=== PATIENT | female | born 1995 | race Caucasian/White ===

== ENCOUNTER → 2018-05-19 | Emergency (ER) | payer OTHER ==
[~2018-05-19] VITALS: Ht 162.6 cm; Wt 61.2 kg
[~2018-05-19] MED LIST: ANTACID SUSP 30 ML UDC (MYLANTA) PO ONE; ASPIRIN 81 MG CHEW (CHILDREN'S ASA) PO ONE; LIDOCAINE 2% VISCOUS 15 ML UDC PO ONE
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
--- OUTSIDE RECORDS SUMMARY | 2018-05-19 21:07 | XMS REPORT ---
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 Name Role Phone FRANK DAMON Unavailable PROBLEMS Unknown Problems ALLERGIES No Known Allergies ENCOUNTERS Encounter Location Date Diagnosis [facility] [id number] [place] [phone] Oct, Right foot pain M79.671 and Closed nondisplaced fracture of fifth metatarsal bone of right foot, initial encounter S92.354A [facility] [address] [place], [place] [id number] [place] [phone] Mar, Sore throat J02.9 and Middle ear effusion, right H65.91 [facility] [id number] [place] [phone] May, Fever and chills R50.9 [facility] [id number] [place] [phone] May, Sore throat J02.9 and Acute streptococcal pharyngitis J02.0 IMMUNIZATIONS No Known Immunizations SOCIAL HISTORY Never Assessed REASON FOR VISIT Right foot injury. happened last night. Missed some steps PLAN OF CARE Activity Details Follow Up prn Reason: VITAL SIGNS Height 63 in 2016-11-27 Temperature 98.5 degrees Fahrenheit 2016-11-27 Heart Rate 78 bpm 2016-11-27 Respiratory Rate 18 2016-11-27 Blood pressure systolic 102 mmHg 2016-11-27 Blood pressure diastolic 60 mmHg 2016-11-27 MEDICATIONS Medication Instructions Dosage Frequency Start Date End Date Duration Status Nexplanon 68 MG Active RESULTS No Results PROCEDURES Procedure Date Ordered Result Body Site X-RAY EXAM OF FOOT Nov 27, 2016 INSTRUCTIONS MEDICATIONS ADMINISTERED No Known Medications
--- OUTSIDE RECORDS SUMMARY | 2018-05-19 21:07 | XMS REPORT | Clinical Summary ---
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 Name Role Phone Lior Thurman MD PCP Allergies No Known Allergies Current Medications No known medications Active Problems Not on file Social History Tobacco Use Types Packs/Day Years Used Date Never Smoker Alcohol Use Drinks/Week oz/Week Comments Yes Sex Assigned at Date Recorded Not on file Last Filed Vital Signs Vital Sign Reading Time Taken Blood Pressure 110/64 04/22/2015 4:05 PM [employer] Pulse 72 04/22/2015 4:05 PM [employer] Temperature 36.7 C (98.1 F) 04/22/2015 4:05 PM [employer] Respiratory Rate 16 04/22/2015 4:05 PM [employer] Oxygen Saturation 100% 04/22/2015 4:05 PM [employer] Inhaled Oxygen - - Concentration Weight 52.2 kg (115 lb) 04/22/2015 4:05 PM [employer] Height 157.5 cm (5' 2") 04/22/2015 4:05 PM [employer] Body Mass Index 21.03 04/22/2015 4:05 PM [employer] Plan of Treatment Not on file Results Not on filefrom Last 3 Months
[2018-05-19 21:26] LABS: BASOPHILS % (AUTO) 0 % (0-10); EOSINOPHILS # (AUTO) 0.1 10^3/uL (0.0-0.3); EOSINOPHILS % (AUTO) 1 % (0-10); HEMATOCRIT 39 % (35-52); HEMOGLOBIN 13.7 G/DL (11.5-16.0); LYMPHOCYTES # (AUTO) 2.6 X 10^3 (1.0-4.0); LYMPHOCYTES % (AUTO) 30 % (12-44); MEAN CORPUSCULAR HEMOGLOBIN 32 PG (25-34); MEAN CORPUSCULAR HGB CONC 35 G/DL (32-36); MEAN CORPUSCULAR VOLUME 93 FL (80-99); MEAN PLATELET VOLUME 10.9 FL (7.4-10.4); MONOCYTES % (AUTO) 11 % (0-12); NEUTROPHILS % (AUTO) 57 % (42-75); PLATELET COUNT 260 10^3/uL (130-400); RED CELL DISTRIBUTION WIDTH 13.3 % (10.0-14.5); WHITE BLOOD COUNT 8.7 10^3/uL (4.3-11.0)
[2018-05-19 21:35] LABS: INR 1.1 (0.8-1.4); PROTHROMBIN TIME PATIENT 14.1 SEC (12.2-14.7)
[2018-05-19 21:46] LABS: ALANINE AMINOTRANSFERASE 12 U/L (0-55); ALBUMIN 4.6 GM/DL (3.2-4.5); ALKALINE PHOSPHATASE 73 U/L (40-136); AMYLASE 57 U/L (25-125); BILIRUBIN,TOTAL 0.2 MG/DL (0.1-1.0); BUN/CREATININE RATIO 14; CALCIUM 9.5 MG/DL (8.5-10.1); CARBON DIOXIDE 22 MMOL/L (21-32); CHLORIDE 107 MMOL/L (98-107); CREATINE KINASE 82 U/L (29-168); CREATININE SERUM 0.74 MG/DL (0.60-1.30); GFR ESTIMATED > 60; GLUCOSE 90 MG/DL (70-105); LIPASE 24 U/L (8-78); MAGNESIUM 2.1 MG/DL (1.8-2.4); POTASSIUM 3.4 MMOL/L (3.6-5.0); SODIUM 140 MMOL/L (135-145); TOTAL PROTEIN 7.3 GM/DL (6.4-8.2)
--- NOTE | 2018-05-19 21:52 | Diagnostic Imaging Report ---
INDICATION: Chest pain and left arm pain. EXAMINATION: PA and lateral views of the chest were obtained. FINDINGS: The heart size, mediastinal configuration, and pulmonary vascularity are within normal limits. There is no pleural effusion, pneumothorax, or pneumonia. The osseous structures are unremarkable. IMPRESSION: No acute cardiopulmonary abnormality. Dictated by: Dictated on workstation # [id number]
[2018-05-19 21:53] LABS: CREATINE KINASE MB 0.5 NG/ML (<6.6); MYOGLOBIN SERUM 21.6 NG/ML (10.0-92.0)
[2018-05-19 22:01] LABS: AMPHETAMINE SCREEN, URINE NEGATIVE (NEGATIVE); BARBITURATE SCREEN URINE NEGATIVE (NEGATIVE); BENZODIAZEPINES SCREEN URINE NEGATIVE (NEGATIVE); CANNABINOID SCREEN, URINE NEGATIVE (NEGATIVE); COCAINE SCREEN URINE NEGATIVE (NEGATIVE); METHADONE STAT NEGATIVE (NEGATIVE); METHAMPHETAMINE SCREEN URINE S NEGATIVE (NEGATIVE); OPIATE SCREEN URINE NEGATIVE (NEGATIVE); OXYCODONE STAT NEGATIVE (NEGATIVE); PROPOXYPHENE STAT NEGATIVE (NEGATIVE); TRICYCLIC ANTIDEPRESSANTS SCRE NEGATIVE (NEGATIVE)
--- NOTE | 2018-05-19 22:10 | ED Chest Pain ---
General Chief Complaint: Chest Pain Stated Complaint: CP Nursing Triage Note: pt states chest pain for 20 min. left chest radiating left arm/left back. Nursing Sepsis Screen: No Definite Risk History of Present Illness Date Seen by Provider: May 19, 2018 Time Seen by Provider: 21:30 Initial Comments 22-year-old female presents for left chest and arm pain. 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 She ate at approximately 1500 and was watching TV this evening when she began to have acute pain (approx 2100) in her left chest that radiated to her left arm. She became diaphoretic and nauseated. She came directly to the emergency department. She has no family history of CAD or CO, Her dad has HTN. Her sister had a congenital heart defect and required surgery shortly after for a "hole in her heart." She denies any injuries to her left chest wall today, she does no aggressive physical activity, she denies shortness of breath or palpitations, or recent cough/respiratory infection. Her pain is slightly improved since admission but still present in the left chest, under her breast and radiates into the left shoulder. She denies any back pain, jaw pain or injuries to her shoulder. She has an implanted control ( Implanon), she denies using tobacco products. She denies a history of anxiety, stress or panic attacks. She is planning to sign a teaching contract tomorrow, that she is excited about this and does not feel it isn't stressful event. Timing/Duration: 1/2 hour Severity/Quality: mild Location: epigastric Radiation: shoulders (left) Activities at Onset: none Prior CP/Workup: no prior chest pain ASA po WATER/WASTEWATER ENGINEER: No NTG SL WATER/WASTEWATER ENGINEER: No Associated Symptoms: diaphoresis, nausea/vomiting Allergies and Home Medications Allergies Coded Allergies: cephalexin (Unverified Allergy, Unknown, rash, 11/18/15) Home Medications No Active Prescriptions or Reported Meds Patient Home Medication List Home Medication List Reviewed: Yes Review of Systems Review of Systems Constitutional: no symptoms reported, see HPI Cardiovascular: See HPI, Chest Pain All Other Systems Reviewed Negative Unless Noted: Yes Past Luibqsi-Zsuaml-Imhxul Hx Past Med/Social Hx: Reviewed Nursing Past Med/Soc Hx Patient Social History Alcohol Use: Denies Use Recreational Drug Use: No Smoking Status: Never a Smoker 2nd Hand Smoke Exposure: No Recent Foreign Travel: No Contact w/Someone Who Travel: No Recent Infectious Disease Expo: No Recent Hopitalizations: No Physical Abuse: No Sexual Abuse: No Mistreated: No Fear: No Immunizations Up To Date Tetanus Booster (TDap): Unknown Seasonal Allergies Seasonal Allergies: No Past Medical History Surgeries: Yes (wisdom teeth) Respiratory: No Cardiac: No Neurological: No Reproductive Disorders: No Gastrointestinal: No Musculoskeletal: No Endocrine: No Cancer: No Psychosocial: No Integumentary: No Blood Disorders: No Adverse Reaction/Blood Tranf: No Physical Exam Vital Signs Vital Signs - First Documented 05/19/18 21:17 Temp 98.9 Pulse 93 Resp 18 B/P (MAP) 131/82 (98) Pulse Ox 100 O2 Delivery Room Air Capillary Refill : Less Than 3 Seconds Height, Weight, BMI Height: 5'4.00" Weight: 135lbs. oz. 61.656927go; BMI Method:Estimated General Appearance: No Apparent Distress, WD/WN HEENT: PERRL/EOMI, TMs Normal, Normal ENT Inspection, Pharynx Normal Neck: Full Range of Motion, Normal Inspection, Non Tender, Supple Respiratory: Chest Non Tender (to palpation, she does report deeper chest pain that is under the left breast and radiates to her left shoulder), Lungs Clear, Normal Breath Sounds Cardiovascular: Regular Rate, Rhythm, No Edema, Normal Peripheral Pulses, Other (heart rate On admission was 101, currently 70s) Gastrointestinal: Normal Bowel Sounds, Non Tender, Soft Extremity: Normal Capillary Refill, Normal Inspection, Normal Range of Motion, No Pedal Edema Neurologic/Psychiatric: Alert, Oriented x3, No Motor/Sensory Deficits, Normal Mood/Affect Skin: Normal Color, Warm/Dry Lymphatic: No Adenopathy Progress/Results/Core Measures Results/Orders Lab Results Laboratory Tests Test 05/19/18 21:17 05/19/18 21:35 05/19/18 23:16 Range/Units White Blood Count 8.7 4.3-11.0 10^3/uL Red Blood Count 4.23 L 4.35-5.85 10^6/uL Hemoglobin 13.7 11.5-16.0 G/DL Hematocrit 39 35-52 % Mean Corpuscular Volume 93 80-99 FL Mean Corpuscular Hemoglobin 32 25-34 PG Mean Corpuscular Hemoglobin Concent 35 32-36 G/DL Red Cell Distribution Width 13.3 10.0-14.5 % Platelet Count 260 130-400 10^3/uL Mean Platelet Volume 10.9 H 7.4-10.4 FL Neutrophils (%) (Auto) 57 42-75 % Lymphocytes (%) (Auto) 30 12-44 % Monocytes (%) (Auto) 11 0-12 % Eosinophils (%) (Auto) 1 0-10 % Basophils (%) (Auto) 0 0-10 % Neutrophils # (Auto) 5.0 1.8-7.8 X 10^3 Lymphocytes # (Auto) 2.6 1.0-4.0 X 10^3 Monocytes # (Auto) 1.0 0.0-1.0 X 10^3 Eosinophils # (Auto) 0.1 0.0-0.3 10^3/uL Basophils # (Auto) 0.0 0.0-0.1 10^3/uL Prothrombin Time 14.1 12.2-14.7 SEC INR Comment 1.1 0.8-1.4 Activated Partial Thromboplast Time 29 24-35 SEC Sodium Level 140 135-145 MMOL/L Potassium Level 3.4 L 3.6-5.0 MMOL/L Chloride Level 107 98-107 MMOL/L Carbon Dioxide Level 22 21-32 MMOL/L Anion Gap 11 5-14 MMOL/L Blood Urea Nitrogen 10 7-18 MG/DL Creatinine 0.74 0.60-1.30 MG/DL Estimat Glomerular Filtration Rate > 60 BUN/Creatinine Ratio 14 Glucose Level 90 70-105 MG/DL Calcium Level 9.5 8.5-10.1 MG/DL Corrected Calcium 8.5-10.1 MG/DL Magnesium Level 2.1 1.8-2.4 MG/DL Total Bilirubin 0.2 0.1-1.0 MG/DL Aspartate Amino Transf (AST/SGOT) 16 5-34 U/L Alanine Aminotransferase (ALT/SGPT) 12 0-55 U/L Alkaline Phosphatase 73 40-136 U/L Total Creatine Kinase 82 29-168 U/L Creatine Kinase MB 0.5 <6.6 NG/ML Myoglobin 21.6 10.0-92.0 NG/ML Troponin I < 0.028 < 0.028 <0.028 NG/ML B-Type Natriuretic Peptide 15.1 <100.0 PG/ML Total Protein 7.3 6.4-8.2 GM/DL Albumin 4.6 H 3.2-4.5 GM/DL Amylase Level 57 25-125 U/L Lipase 24 8-78 U/L TSH [place] Testing 0.97 0.35-4.94 UIU/ML Serum Test, Qualitative NEGATIVE NEGATIVE Urine Opiates Screen NEGATIVE NEGATIVE Urine Oxycodone Screen NEGATIVE NEGATIVE Urine Methadone Screen NEGATIVE NEGATIVE Urine Propoxyphene Screen NEGATIVE NEGATIVE Urine Barbiturates Screen NEGATIVE NEGATIVE Ur Tricyclic Antidepressants Screen NEGATIVE NEGATIVE Urine Phencyclidine Screen NEGATIVE NEGATIVE Urine Amphetamines Screen NEGATIVE NEGATIVE Urine Methamphetamines Screen NEGATIVE NEGATIVE Urine Benzodiazepines Screen NEGATIVE NEGATIVE Urine Cocaine Screen NEGATIVE NEGATIVE Urine Cannabinoids Screen NEGATIVE NEGATIVE D-Dimer 0.35 0.00-0.49 UG/ML My Orders Orders - COLEEN,KAYA BACKROOM ASSOCIATE Lidocaine 2% Viscous 15 Ml (Xylocaine Vi (05/19/18 22:30) Antacid Suspension (Mylanta Suspension (05/19/18 22:30) Troponin I (05/19/18 23:05) Fibrin Degradation Products (05/19/18 23:05) Medications Given in ED Current Medications Medications Dose Ordered Sig/Patrizia Route Start Time Stop Time Status Last Admin Dose Admin Al Hydrox/Mg Hydrox/Simethicone 30 ml ONCE ONCE PO 05/19/18 22:30 05/19/18 22:31 DC 05/19/18 22:35 30 ML Aspirin 324 mg ONCE ONCE PO 05/19/18 21:30 05/19/18 21:31 DC 05/19/18 21:36 324 MG Lidocaine HCl 15 ml ONCE ONCE PO 05/19/18 22:30 05/19/18 22:31 DC 05/19/18 22:35 15 ML Vital Signs/I&O 05/19/18 05/19/18 21:17 21:17 Temp 98.9 Pulse 93 Resp 18 B/P (MAP) 131/82 (98) Pulse Ox 100 O2 Delivery Room Air Room Air Blood Pressure Mean: 98 Progress Progress Note : Time: 21:30 Progress Note Patient seen and evaluated, cardiac workup started. Will await labs, EKG and chest x-ray. ASA 324 mg orally. 2215 Patient continues to have diffuse left chest pain with radiation to left shoulder. Unchanged, no nausea or diaphoresis after initial onset. Will try a GI cocktail. As EKG, chest x-ray and labs are all normal at this point. [address] Perdomo, discussed patients labs, exam and VS. Only risk factor for PE is the Implanon, Will obtain repeat Troponin at 2300 and add D- dimer. Patient does report that her left shoulder pain has improved but she is continuing to have mild left chest pain. 2330 Repeat Troponin negative. Waiting on D-Dimer. Patient reports the left chest pain has improved. 2340 D-Dimer 0.35. Blood pressure 110/60, pulse 66, SaO2 100% on room air. No dyspnea or chest pain with deep inspiration or cough. Discussed with the patient. Discharge instructions and return precautions reviewed with her. All questions answered. Initial ECG Impression Date: May 19, 2018 Initial ECG Impression Time: 21:09 Initial ECG Rate: 101 Initial ECG Rhythm: S.Tach Initial ECG Intervals: Normal Initial ECG Intervals AR 144, QRSD 80, QT 352, QTC 457. [place] P 58, QRS 26, T 45. Initial ECG Impression: Normal Initial ECG Comparisson: No Previous ECG Available Comment Reviewed with Dr. Redman, concurred with interpretation. EKG : EKG Time: 23:09 Rate: 74 Rhythm: Normal Sinus Intervals: Normal ECG Comparisson: Unchanged ECG Impression: Normal Diagnostic Imaging Diagonstic Imaging: Xray Plain Films/CT/US/NM/MRI: chest Comments NAME: RUDDY ENGLAND MED REC#: [id number] PHYSICIAN: JESSICA REDMAN DO CC: KIRAN MACIAS MD; JESSICA REDMAN DO Page 1 of 1 RADIOLOGY REPORT [facility] [place] CC: KIRAN MACIAS MD; EJSSICA REDMAN DO Page 1 of 1 RADIOLOGY REPORT NAME: RUDDY ENGLAND MED REC#: [id number] PT STATUS: REG ER : 1995 PHYSICIAN: JESSICA REDMAN DO ADMIT DATE: 05/19/18/ER Signed Date of Exam: 05/19/18 CHEST PA/LAT (2 VIEW) INDICATION: Chest pain and left arm pain. EXAMINATION: PA and lateral views of the chest were obtained. FINDINGS: The heart size, mediastinal configuration, and pulmonary vascularity are within normal limits. There is no pleural effusion, pneumothorax, or pneumonia. The osseous structures are unremarkable. IMPRESSION: No acute cardiopulmonary abnormality. Dictated by: Dictated on workstation # [id number] Dict: 05/19/182148 Trans: 05/19/182151 Interpreted by: KIRAN MACIAS MD Electronically signed by: KIRAN MACIAS MD 05/19/182151 Reviewed: Reviewed by Me Departure Impression Primary Impression: Chest pain Qualified Codes: R07.9 - Chest pain, unspecified Disposition: HOME, SELF-CARE Condition: Improved Departure-Patient Inst. Decision time for Depature: 23:50 Referrals: NO,LOCAL PHYSICIAN (PCP/Family) Primary Care Physician Patient Instructions: Chest Pain That Is Not Caused by the Heart (DC) Add. Discharge Instructions: Follow-up at [facility] if symptoms are not improving. No restrictions. Return to emergency department for chest pain, shortness of breath, dizziness, palpitations or other concerns. All discharge instructions reviewed with patient and/or family. Voiced understanding. Scripts No Active Prescriptions or Reported Meds Copy Copies To 1: SUYAPA ROBERTS MD, AMY ARNP May 19, 2018 22:10
[2018-05-20 00:05] VITALS: BP 105/83
[2018-05-20 01:50] LABS: CHOLESTEROL 130 MG/DL (< 200); HDL CHOLESTEROL 48 MG/DL (40-60); TRIGLYCERIDES 50 MG/DL (<150); VLDL CHOLESTEROL 10 MG/DL (5-40)
== END | disposition home or self-care (01) ==
LOC: EDUNIT# 21:02 → ER 21:03
DX: R07.89 Other chest pain (principal); Z97.5 Presence of (intrauterine) contraceptive device; Z88.1 Allergy status to other antibiotic agents; Z82.49 Family history of ischemic heart disease and other diseases of the circulatory system
CPT/HCPCS: 36415; 71046; 80053; 80061; 80306; 82150; 82550; 82553; 83690; 83735; 83874; 83880; 84443; 84484; 84703; 85025; 85379; 85610; 85730; 93005; 93041